=== PATIENT | female | born 1935 | race Caucasian/White ===

== ENCOUNTER 2019-07-06 15:07 | Emergency (ER) | payer OTHER ==
[~2019-07-06] VITALS: Ht 149.9 cm; Wt 57.6 kg
[~2019-07-06 15:07] MED LIST: ACET325 PO; ALBU90OI61 INH; ASCO500 PO; ASPI81CH PO; ASPI81EC PO; ATOR40TA PO; BENZ100A PO; CARV25 PO; CARV6.25 PO; CETI5 PO; CHOL10002 PO; CLON.5 PO; CLON1 PO; CLOP75 PO; DICL.1SO OD; DOXE0.5 PO; ELET40TA PO; ESTR2 PO; FAMO40 PO; FERR325 PO; FEXO180 PO; FLECTOR 1.3%; FLUSAL1005 IH; FOLI1 PO; FURO40 PO; HYDACE5 PO; LISI5 PO; LOVA20 PO; MULVITMINF PO; OMEP20ER PO; OXYC5 PO; PARO20 PO; POTA10T PO; SPIR25 PO; TOPI50 PO; WARF2.5 PO; WARF5 PO; [UNRECOGNIZED DRUG - REMARK]; [UNRECOGNIZED DRUG - REMARK]
[2019-07-06 16:33] LABS: BASOPHILS ABSOLUTE AUTO 0.05 K/mm3 (0.00-0.23); BASOPHILS PERCENT AUTO 1 % (0-2); EOSINOPHILS ABSOLUTE AUTO 0.11 K/mm3 (0.00-0.68); EOSINOPHILS PERCENT AUTO 2 % (0-6); Hematocrit 30.7 % (33.0-51.0); Hemoglobin 9.6 g/dL (11.5-16.0); IMMATURE GRAN ABSOLUTE AUTO 0.01 K/mm3 (0.00-0.10); IMMATURE GRAN PERCENT AUTO 0 % (0-1); LYMPHOCYTES ABSOLUTE AUTO 1.63 K/mm3 (0.84-5.20); LYMPHOCYTES PERCENT AUTO 25 % (21-46); MONOCYTES ABSOLUTE AUTO 0.55 K/mm3 (0.16-1.47); MONOCYTES PERCENT AUTO 9 % (4-13); Mean Corpuscular HGB 28.4 pg (26.0-34.0); Mean Corpuscular HGB Conc 31.3 g/dL (31.5-36.5); Mean Corpuscular Volume 91 fL (80-100); Mean Platelet Volume 10.7 fL (9.1-12.4); NEUTROPHILS ABSOLUTE AUTO 4.11 K/mm3 (1.96-9.15); NEUTROPHILS PERCENT AUTO 64 % (41-73); Platelet Count 202 K/mm3 (150-400); RDW Coefficient Variation 15.7 % (11.7-14.2); RDW Standard Deviation 52.3 fL (35.1-46.3); Red Blood Cell Count 3.38 M/mm3 (3.80-5.20); White Blood Cell Count 6.46 K/mm3 (4.00-11.30)
[2019-07-06 16:49] LABS: International Normalized Ratio 2.51; Prothrombin Time Results 24.5 Sec (9.7-11.5)
[2019-07-06 16:56] LABS: Albumin, Blood 3.9 g/dL (3.4-5.0); Albumin/Globulin Ratio 0.9 (0.8-1.8); Bun/Creatinine Ratio 13.9 (12.0-20.0); Calcium, Blood 9.3 mg/dL (8.5-10.1); Creatinine, Blood 1.8 mg/dL (0.40-1.00); Globulin, Blood 4.2 g/dL (2.2-4.0); Potassium, Blood 3.8 mmol/L (3.5-5.5); Total Protein, Blood 8.1 g/dL (6.4-8.2)
== END 2019-07-06 17:41 | disposition short-term general hospital (02) ==
LOC: ER 15:07
PROVIDERS: Physician Assistant
DX: I62.00 Nontraumatic subdural hemorrhage, unspecified (principal); N18.9 Chronic kidney disease, unspecified; D64.9 Anemia, unspecified; R79.1 Abnormal coagulation profile; Z88.5 Allergy status to narcotic agent; Z79.82 Long term (current) use of aspirin; Z79.899 Other long term (current) drug therapy; Z79.891 Long term (current) use of opiate analgesic; Z79.01 Long term (current) use of anticoagulants; I67.2 Cerebral atherosclerosis; G93.89 Other specified disorders of brain
CPT/HCPCS: 36415; 70450; 80053; 85025; 85610; 86850; 86900; 86901; 96365; 96375; 99284-25; C9132; J3430